=== PATIENT | female | born 1955 | race Caucasian/White ===

== ENCOUNTER 2020-05-17 06:00 | Outpatient (RCR) | payer MEDICARE, SELFPAY | END 2020-06-16 23:59 | disposition home or self-care (01) | LOC: MPT 06:00 | PROVIDERS: PCP Family Medicine; Referring Provider Neurological Surgery; Visit Provider Neurological Surgery | DX: Z98.1 Arthrodesis status (principal) | CPT/HCPCS: 97110; 97140; 97162 ==

== ENCOUNTER 2020-06-17 06:00 | Outpatient (RCR) | payer MEDICARE, SELFPAY | END 2020-07-16 23:59 | disposition home or self-care (01) | LOC: MPT 06:00 | PROVIDERS: PCP Family Medicine; Referring Provider Neurological Surgery; Visit Provider Neurological Surgery | DX: Z98.1 Arthrodesis status (principal) | CPT/HCPCS: 97110; 97140 ==

== ENCOUNTER → 2020-06-23 15:03 | Outpatient (BNVA) | payer MEDICARE, SELFPAY | PROVIDERS: PCP Family Medicine; Visit Provider Family Medicine | DX: F41.1 Generalized anxiety disorder (principal); G24.3 Spasmodic torticollis; G25.9 Extrapyramidal and movement disorder, unspecified; Z13.1 Encounter for screening for diabetes mellitus; Z13.6 Encounter for screening for cardiovascular disorders; E89.0 Postprocedural hypothyroidism; Z12.39 Encounter for other screening for malignant neoplasm of breast; Z13.820 Encounter for screening for osteoporosis; M85.80 Other specified disorders of bone density and structure, unspecified site; Z78.0 Asymptomatic menopausal state | CPT/HCPCS: 80053; 80061; 85025 ==

== ENCOUNTER → 2021-07-20 14:53 | Outpatient (BNVA) | payer MEDICARE, SELFPAY | PROVIDERS: PCP Family Medicine; Visit Provider Family Medicine | DX: Z13.6 Encounter for screening for cardiovascular disorders (principal) | CPT/HCPCS: 80061 ==

== ENCOUNTER → 2021-11-28 09:56 | Outpatient (BNVA) | payer MEDICARE, SELFPAY | PROVIDERS: PCP Family Medicine; Visit Provider Internal Medicine Cardiovascular Disease | DX: I49.9 Cardiac arrhythmia, unspecified (principal); I49.3 Ventricular premature depolarization; I49.1 Atrial premature depolarization; I47.1 Supraventricular tachycardia | CPT/HCPCS: 93225 ==

== ENCOUNTER → 2022-01-19 10:08 | Outpatient (BNVA) | payer MEDICARE, SELFPAY | PROVIDERS: PCP Family Medicine; Visit Provider Family Medicine | DX: R05.3 Chronic cough (principal); G24.3 Spasmodic torticollis | CPT/HCPCS: 71046 ==

== ENCOUNTER → 2022-03-06 09:39 | Outpatient (BNVA) | payer MEDICARE, SELFPAY | PROVIDERS: PCP Family Medicine; Visit Provider Anesthesiology Pain Medicine | DX: M47.812 Spondylosis without myelopathy or radiculopathy, cervical region (principal); M50.90 Cervical disc disorder, unspecified, unspecified cervical region; G24.3 Spasmodic torticollis; M79.601 Pain in right arm; M79.602 Pain in left arm | CPT/HCPCS: 99205 ==

== ENCOUNTER → 2022-03-28 09:07 | Outpatient (BNVA) | payer MEDICARE, SELFPAY | PROVIDERS: PCP Family Medicine; Visit Provider Anesthesiology Pain Medicine | DX: M79.18 Myalgia, other site (principal); M47.812 Spondylosis without myelopathy or radiculopathy, cervical region; M50.90 Cervical disc disorder, unspecified, unspecified cervical region; G24.3 Spasmodic torticollis | CPT/HCPCS: 20553; 99213; J1030; J3490 ==

== ENCOUNTER → 2022-05-01 09:10 | Outpatient (BNVA) | payer MEDICARE, SELFPAY | PROVIDERS: PCP Family Medicine; Visit Provider Anesthesiology Pain Medicine | DX: M51.16 Intervertebral disc disorders with radiculopathy, lumbar region (principal); M47.812 Spondylosis without myelopathy or radiculopathy, cervical region; M50.90 Cervical disc disorder, unspecified, unspecified cervical region; G24.3 Spasmodic torticollis | CPT/HCPCS: 72110; 99214 ==

== ENCOUNTER 2022-05-30 10:31 | Outpatient (CLI) | payer MEDICARE, SELFPAY ==
--- NOTE | 2022-05-30 11:00 | MR_ITS ---
WS: [id number] MRI LUMBAR SPINE NONCONTRAST TECHNIQUE: Sagittal T1, T2 and STIR imaging. Axial T1 and T2 imaging. CLINICAL INFORMATION: M54.16 - Radiculopathy, lumbar region COMPARISON: None. FINDINGS: Mild lumbar curve. No acute compression. Disc space narrowing worse at L3-L4. Anterior wedging with m ild edema L1 superior endplate with mild anterior wedging. Small amount of edema in the superior endp late L1. Endplate Schmorl's node L2. L1-L2: Mild annular bulging. Mild facet arthropathy. Spinal canal and foramen are patent. L2-L3: Mild annular bulging. Slight effacement of ventral thecal sac. Mild LEFT and no significant RI GHT foraminal narrowing. Mild facet arthropathy. L3-L4: Disc space narrowing. Small LEFT foraminal protrusion with mild to moderate LEFT and mild RIGH T foraminal narrowing. Mild facet arthropathy. Narrowing of the LEFT subarticular recess. L4-L5: Mild annular bulging. Slight effacement of ventral thecal sac. Slight narrowing of the subarti cular recess bilaterally. Small bilateral foraminal protrusions with mild LEFT foraminal narrowing. L5-S1: Spinal canal and foramen are patent. Moderate facet arthropathy. Visualized pelvic bony structures: Normal. Paravertebral soft tissues: Normal. Incidental Tarlov cysts in the sacrum. MR/MR lumbar spine wo con* [id number] IMPRESSION: 1. Mild anterior wedging L1 with mild compression superior endplate with edema consistent with acute compression. No retropulsion. 2. Small LEFT foraminal protrusion L3-L4 with mild to moderate LEFT foraminal narrowing. 3. Mild annular bulging L4-L5 with impingement traversing L5 nerve roots bilat erally. Mild LEFT foraminal narrowing at this level. 4. Moderate facet arthropathy L3-L5.
== END 2022-05-30 10:32 | disposition home or self-care (01) ==
LOC: RAD 10:37
PROVIDERS: PCP Family Medicine; Visit Provider Anesthesiology Pain Medicine
DX: M54.16 Radiculopathy, lumbar region (principal); M47.816 Spondylosis without myelopathy or radiculopathy, lumbar region; M51.26 Other intervertebral disc displacement, lumbar region; M48.56XA Collapsed vertebra, not elsewhere classified, lumbar region, initial encounter for fracture; M48.061 Spinal stenosis, lumbar region without neurogenic claudication
CPT/HCPCS: 72148

== ENCOUNTER → 2022-06-08 09:05 | Outpatient (BNVA) | payer MEDICARE, SELFPAY | PROVIDERS: PCP Family Medicine; Visit Provider Anesthesiology Pain Medicine | DX: M47.812 Spondylosis without myelopathy or radiculopathy, cervical region (principal); M50.90 Cervical disc disorder, unspecified, unspecified cervical region; M51.16 Intervertebral disc disorders with radiculopathy, lumbar region; G24.3 Spasmodic torticollis | CPT/HCPCS: 99214 ==

== ENCOUNTER → 2022-08-29 10:34 | Outpatient (BNVA) | payer MEDICARE, SELFPAY | PROVIDERS: PCP Family Medicine; Visit Provider Anesthesiology Pain Medicine | DX: M47.812 Spondylosis without myelopathy or radiculopathy, cervical region (principal); G24.3 Spasmodic torticollis; M51.16 Intervertebral disc disorders with radiculopathy, lumbar region; M50.90 Cervical disc disorder, unspecified, unspecified cervical region | CPT/HCPCS: 99214 ==

== ENCOUNTER → 2022-09-20 08:43 | Outpatient (BNVA) | payer MEDICARE, SELFPAY | PROVIDERS: PCP Family Medicine; Visit Provider Family Medicine | DX: E05.00 Thyrotoxicosis with diffuse goiter without thyrotoxic crisis or storm (principal); Z13.220 Encounter for screening for lipoid disorders; Z13.6 Encounter for screening for cardiovascular disorders; Z13.1 Encounter for screening for diabetes mellitus | CPT/HCPCS: 80053; 80061 ==

== ENCOUNTER → 2022-10-03 09:54 | Outpatient (BNVA) | payer MEDICARE, SELFPAY | PROVIDERS: PCP Family Medicine; Visit Provider Anesthesiology Pain Medicine | DX: M47.812 Spondylosis without myelopathy or radiculopathy, cervical region (principal); M50.90 Cervical disc disorder, unspecified, unspecified cervical region; M51.16 Intervertebral disc disorders with radiculopathy, lumbar region; G24.3 Spasmodic torticollis | CPT/HCPCS: 99214 ==

== ENCOUNTER → 2022-10-16 07:50 | Outpatient (BNVA) | payer MEDICARE, SELFPAY | PROVIDERS: PCP Family Medicine; Visit Provider Specialist | DX: G24.3 Spasmodic torticollis (principal); G62.9 Polyneuropathy, unspecified; G43.709 Chronic migraine without aura, not intractable, without status migrainosus; R26.89 Other abnormalities of gait and mobility | CPT/HCPCS: 99205 ==

== ENCOUNTER → 2022-11-02 07:54 | Outpatient (BNVA) | payer MEDICARE, SELFPAY | PROVIDERS: PCP Family Medicine; Visit Provider Specialist | DX: G24.3 Spasmodic torticollis (principal); G43.711 Chronic migraine without aura, intractable, with status migrainosus; G62.9 Polyneuropathy, unspecified; R26.9 Unspecified abnormalities of gait and mobility; F43.10 Post-traumatic stress disorder, unspecified | CPT/HCPCS: 64615; 64616; 99214; J0585 ==

== ENCOUNTER → 2023-02-01 07:50 | Outpatient (BNVA) | payer MEDICARE, SELFPAY | PROVIDERS: PCP Family Medicine; Visit Provider Specialist | DX: G43.711 Chronic migraine without aura, intractable, with status migrainosus (principal); G24.3 Spasmodic torticollis | CPT/HCPCS: 64615; 64616; 95911; J0585 ==

== ENCOUNTER → 2023-03-05 09:59 | Outpatient (BNVA) | payer MEDICARE, SELFPAY | PROVIDERS: PCP Family Medicine; Visit Provider Internal Medicine | DX: E89.0 Postprocedural hypothyroidism (principal); M81.0 Age-related osteoporosis without current pathological fracture; E05.00 Thyrotoxicosis with diffuse goiter without thyrotoxic crisis or storm; Z79.890 Hormone replacement therapy | CPT/HCPCS: 99204 ==

== ENCOUNTER → 2023-03-13 09:51 | Outpatient (BNVA) | payer MEDICARE, SELFPAY | PROVIDERS: PCP Family Medicine; Referring Provider Internal Medicine; Visit Provider Internal Medicine | DX: E05.00 Thyrotoxicosis with diffuse goiter without thyrotoxic crisis or storm (principal) | CPT/HCPCS: 84439; 84443 ==

== ENCOUNTER → 2023-03-20 08:49 | Outpatient (BNVA) | payer MEDICARE, SELFPAY | PROVIDERS: PCP Family Medicine; Visit Provider Anesthesiology Pain Medicine | DX: M47.812 Spondylosis without myelopathy or radiculopathy, cervical region; M50.90 Cervical disc disorder, unspecified, unspecified cervical region; G24.3 Spasmodic torticollis; M51.16 Intervertebral disc disorders with radiculopathy, lumbar region | CPT/HCPCS: 99214 ==

== ENCOUNTER → 2023-03-30 13:09 | Outpatient (BNVA) | payer MEDICARE, SELFPAY | PROVIDERS: PCP Family Medicine; Visit Provider Specialist | DX: M79.601 Pain in right arm (principal); M79.602 Pain in left arm; M79.641 Pain in right hand; M79.642 Pain in left hand; R20.0 Anesthesia of skin; R20.2 Paresthesia of skin | CPT/HCPCS: 95885; 95911 ==

== ENCOUNTER → 2023-05-10 07:30 | Outpatient (BNVA) | payer MEDICARE, SELFPAY | PROVIDERS: PCP Family Medicine; Visit Provider Specialist | DX: G43.711 Chronic migraine without aura, intractable, with status migrainosus (principal); G24.3 Spasmodic torticollis | CPT/HCPCS: 64615; 64616; J0585 ==

== ENCOUNTER 2023-05-16 14:59 | Emergency (ER) | payer MEDICARE, SELFPAY ==
[2023-05-16 15:20] VITALS: BP 139/86; PULSE 81; TEMP 36.6; O2SAT 97; BMI 22.3
[2023-05-16 16:56] VITALS: O2SAT 97
[2023-05-16 17:05] LABS: Hematocrit 38.6 % (36-47); Lymphocytes % 26.1 %; Mean Corpuscular HGB Conc 33.2 g/dL (30-55); Mean Corpuscular Hemoglobin 29.8 pg (27-33); Mean Corpuscular Volume 89.8 fl (85-98); Mean Platelet Volume 10.3 fL (7.4-10.4); Monocytes # 0.3 10^3/uL (0.2-0.9); Monocytes % 8.4 %; Neutrophils # 2.43 10^3/uL (1.8-7.7); Neutrophils % 63.5 %; Nucleated Red Blood Cells % 0 %; Platelet Count 266 10^3/cmm (157-399); Red Cell Distribution Width 13.4 % (12.1-15.1); White Blood Count 3.83 10^3/uL (3.29-11.43)
--- NOTE | 2023-05-16 17:08 | W.ED.NEUROSD ---
HPI - Neuro Symptoms/Deficit General: Chief Complaint: Neuro Symptoms/Deficit Stated Complaint: trouble eating and talking Time Seen by Provider: 05/16/23 16:34 Source: patient Mode of arrival: ambulatory Limitations: no limitations History of Present Illness: 67-year-old female with a history of cervical dystonia she received Botox. States she had a Botox injection a week ago states of last 2 days she has had some difficulty swallowing. States she is able to tolerate liquids but time she has had issues with swallowing liquids as well. Patient is in no distress here denies any vomiting or fever no focal weaknesses. Associated symptoms: Deny chest pain, headache(s), nausea or vomiting Review of Systems Const: Denies: fever(s), chills, body aches or change in appetite ENMT: Denies: throat pain or dental pain Card: Denies: chest pain Resp: Denies: dyspnea GI: Denies: abdominal pain, nausea, vomiting or diarrhea Musc: Denies: neck pain or back pain Skin/Breast: Denies: rash Neuro: Denies: headache(s) PFSH ED PFSH: Medical History Isolated cervical dystonia Seborrheic dermatitis Allergic rhinitis Carpal tunnel syndrome Dysphagia Chronic migraine Dysphonia Cranial neuropathies, multiple Hiatal hernia Diverticulosis Internal hemorrhoids Sensorineural hearing loss, asymmetrical Small fiber neuropathy Hypothyroidism, postablative Graves disease Surgical History S/P cholecystectomy H/O: hysterectomy History of surgical removal of ganglion cyst H/O tubal ligation Family History Father Stroke Diabetes Grandfather Cancer Mother Cancer Grandmother CAD (coronary artery disease) Social History Smoking and tobacco/nicotine status: never used tobacco/nicotine Second hand smoke exposure: No Alcohol intake: never Substance/Drug Use: never Current gender identity: Female Physical Exam Const: COMMON NORMALS: no acute distress, patient oriented x3 and healthy appearing HENMT: COMMON NORMALS: normocephalic and atraumatic HEAD & SCALP: normocephalic and atraumatic Neck/C-Spine: COMMON NORMALS: full ROM and supple Chest: COMMONS NORMALS: normal inspection of the chest Resp: COMMON NORMALS: normal respiratory effort Cardio: COMMON NORMALS: regular rate, regular rhythm and No murmurs present (Cardio) RATE: regular rate RHYTHM: regular rhythm Extremity: COMMON NORMALS: normal to inspection and full ROM Neuro: COMMON NORMALS: patient oriented x3, moves all extremities and no focal motor deficits Psych: COMMON NORMALS: mental status grossly normal, Normal thought process present and cooperative THOUGHT PROCESS: Normal thought process present Skin: COMMON NORMALS: no rashes or lesions noted and no wounds GENERAL SKIN EXAM: no rashes or lesions noted Course Vital Signs: Vital signs: Vital Signs Temperature 97.8 F 05/16/23 15:20 Pulse Rate 81 05/16/23 15:20 Blood Pressure 139/86 05/16/23 15:20 Pulse Oximetry 97 05/16/23 16:56 Oxygen Delivery Me thod Room Air 05/16/23 16:56 MDM - Neuro Symptoms/Deficit Medical Decision Making Patient presents with difficulty swallowing she is handling her secretions well here she is in no distress I did speak to Dr. Church who knows patient well she will set up an outpatient barium swallow and is to follow-up with her outpatient patient's return if worsening she understands agrees to plan Medical Records I reviewed the patient's medical records. Lab Data I reviewed the patient's lab results. 05/16/23 16:54 05/16/23 16:54 Laboratory Results WBC 3.83 10^3/uL (3.29-11.43) 05/16/23 16:54 RBC 4.30 10^6/uL (3.85-5.65) 05/16/23 16:54 Hgb 12.80 g/dL (11.27-16.99) 05/16/23 16:54 Hct 38.6 % (36-47) 05/16/23 16:54 MCV 89.8 fl (85-98) 05/16/23 16:54 MCH 29.8 pg (27-33) 05/16/23 16:54 MCHC 33.2 g/dL (30-55) 05/16/23 16:54 RDW 13.4 % (12.1-15.1) 05/16/23 16:54 Plt Count 266 10^3/cmm (157-399) 05/16/23 16:54 MPV 10.3 fL (7.4-10.4) 05/16/23 16:54 Neut % (Auto) 63.5 % 05/16/23 16:54 Lymph % (Auto) 26.1 % 05/16/23 16:54 Ransom % (Auto) 8.4 % 05/16/23 16:54 Eos % (Auto) 1.0 % 05/16/23 16:54 Baso % (Auto) 1.0 % 05/16/23 16:54 Neut # (Auto) 2.43 10^3/uL (1.8-7.7) 05/16/23 16:54 Lymph # (Auto) 1.0 10^3/uL (0.8-4.8) 05/16/23 16:54 Ransom # (Auto) 0.3 10^3/uL (0.2-0.9) 05/16/23 16:54 Eos # (Auto) 0.0 10^3/uL (0.0-0.8) 05/16/23 16:54 Baso # (Auto) 0.0 10^3/uL (0.0-0.1) 05/16/23 16:54 Nucleated RBC % (auto) 0 % 05/16/23 16:54 Nucleated RBCs # 0.0 /100WBC 05/16/23 16:54 Sodium 139 mmol/L (136-145) 05/16/23 16:54 Potassium 4.3 mmol/L (3.5-5.1) 05/16/23 16:54 Chloride 100 mmol/L (98-107) 05/16/23 16:54 Carbon Dioxide 28 mmol/L (22-29) 05/16/23 16:54 Anion Gap 15.3 (5-19) 05/16/23 16:54 BUN 10 mg/dL (8-23) 05/16/23 16:54 Creatinine 0.8 mg/dL (0.5-0.9) 05/16/23 16:54 GFR Calculation 71.8 mL/min (90-130) L 05/16/23 16:54 Glucose 102 mg/dL (65-115) 05/16/23 16:54 Calculated Osmolality 287 mOsm/kg (285-295) 05/16/23 16:54 Calcium 9.4 mg/dL (8.5-10.5) 05/16/23 16:54 Total Bilirubin 0.3 mg/dL (0.15-1.2) 05/16/23 16:54 AST 27 U/L (0-32) 05/16/23 16:54 ALT 14 U/L (0-33) 05/16/23 16:54 Alkaline Phosphatase 76 U/L (35-105) 05/16/23 16:54 Total Protein 7.4 g/dL (6.6-8.7) 05/16/23 16:54 Albumin 4.6 g/dL (3.5-5.2) 05/16/23 16:54 Globulin 2.8 g/dL (1.3-4.6) 05/16/23 16:54 No radiology studies performed this visit Discharge Plan Discharge Patient Disposition: Home Clinical Impression: Difficulty swallowing Condition: Stable Prescriptions: No Action fexofenadine [Carina Allergy] 180 mg tablet 180 mg PO DAILY fluticasone propionate [Allergy Relief (fluticasone)] 50 mcg/actuation spray,suspension See Rx Instructions INTRANASAL .COMPLEX Rx Instructions: 1 SPRAY intranasal 1-2 TIMES DAILY; administer into each nostril XyliMelts 550 mg muco-adhesive buccal tablet 550 mg MUCOUS MEM .hs magnesium glycinate 100 mg tablet 400 mg PO BID multivitamin with minerals Capsule 1 cap PO DAILY [place]-3 Plus Vitamin D3 [phone] [id number] capsule 1 cap PO DAILY psyllium husk [Daily Fiber] 0.52 gram capsule 0.52 gm PO DAILY epinephrine 0.3 mg/0.3 mL auto-injector 0.3 mg IM Q10M PRN (Reason: anaphylaxis) Rx Instructions: for 2 doses calcium carbonate [Calcium 600] 600 mg calcium (1,500 mg) tablet 600 mg PO BID Gentel tears as directed Patient Comments: small amount @ bedtime polyethylene glycol 3350 [Miralax] 17 gram/dose powder 17 g PO DAILY 30 Days Qty: 510 2RF Rx Instructions: mix with 8 oz water or juice docusate sodium 100 mg capsule 100 mg PO BID 30 Days Qty: 60 2RF levothyroxine 112 mcg tablet 112 mcg PO DAILY baclofen 20 mg tablet 20 mg PO DAILY topiramate 50 mg tablet 50 mg PO BID 30 Days Qty: 60 0RF clonazepam [Klonopin] 1 mg tablet 0.5 mg PO BID Qty: 90 1RF ketoconazole 2 % shampoo 1 applic TOPICAL Q14D Qty: 120 5RF gabapentin 400 mg capsule 400 mg PO TID 90 Days Qty: 270 0RF methocarbamol 500 mg tablet 500 mg PO TID Qty: 90 2RF famotidine 20 mg tablet 20 mg PO .at bedtime 90 Days Qty: 90 0RF Botox 100 unit recon soln 500 unit IM ONCE Qty: 5 0RF levothyroxine 112 mcg tablet 112 mcg PO .COMPLEX Qty: 90 0RF Rx Instructions: 112 mcg orally 1 tab sunday-Sunday and 1/2 tab on Sunday; Discharge Orders: Discharge ED (Routine); Ordered 05/16/23 Ordered By: Ly Zaman Referrals: Monica Church MD [Physician] - 1-3 days Gerri Almodovar MD [Primary Care Provider] - Discharge Diet: Advance as tolerated Discharge Activity: Resume usual activity Patient Instructions: Dysphagia (ED) Coding Level of Care Code ED Air Conditioning Installer Supervisor for Kasia Marinelli
[2023-05-16 17:26] LABS: Alanine Aminotransferase 14 U/L (0-33); Albumin Level 4.6 g/dL (3.5-5.2); Alkaline Phosphatase 76 U/L (35-105); Anion Gap 15.3 (5-19); Aspartate Amino Transferase 27 U/L (0-32); Blood Urea Nitrogen 10 mg/dL (8-23); Calcium 9.4 mg/dL (8.5-10.5); Carbon Dioxide 28 mmol/L (22-29); Chloride 100 mmol/L (98-107); Globulin 2.8 g/dL (1.3-4.6); Glomerular Filtration Rate 71.8 mL/min (90-130); Glucose 102 mg/dL (65-115); Osmolality Calculated 287 mOsm/kg (285-295); Potassium 4.3 mmol/L (3.5-5.1); Sodium 139 mmol/L (136-145); Total Bilirubin 0.3 mg/dL (0.15-1.2); Total Protein 7.4 g/dL (6.6-8.7)
[2023-05-16 17:46] VITALS: BP 130/69; PULSE 74; O2SAT 96
== END 2023-05-16 17:47 | disposition home or self-care (01) ==
PROVIDERS: Emergency Provider Emergency Medicine; PCP Family Medicine
DX: R13.10 Dysphagia, unspecified (principal)
CPT/HCPCS: 36415; 80053; 85025; 99283

== ENCOUNTER 2023-05-22 13:00 | Outpatient (CLI) | payer MEDICARE, SELFPAY ==
--- NOTE | 2023-05-22 13:30 | XR_ITS ---
WS: [email or web address] SCREENING DEXA SCAN [employer] CLINICAL INFORMATION: osteoporosis COMPARISON: None. FINDINGS: The L1-L4 bone mineral density measures 1.142 g/cm2. This corresponds to a T score score of -0.3 and Z score of 1.4. Left femoral neck bone mineral density measures 0.739 g/cm2. This corresponds to a T score of -2.1 an d Z score of -0.8. Right femoral neck bone mineral density measures 0.774 g/cm2. This corresponds to a T score -1.9of an d Z score of -0.5. Mean femoral neck bone mineral density measures 0.756 g/cm2. This corresponds to a T score of -2.0 an d Z score of -0.6. IMPRESSION: Normal bone mineralization lumbar spine. Osteopenia femoral necks. Patient's FRAX calculated 10 year probability for major osteoporotic fracture is 23.0% and osteoporot ic hip fracture is 4.2%.
== END 2023-05-22 13:01 | disposition home or self-care (01) ==
LOC: RAD 13:01
PROVIDERS: PCP Family Medicine; Visit Provider Internal Medicine
DX: M81.0 Age-related osteoporosis without current pathological fracture (principal); M47.812 Spondylosis without myelopathy or radiculopathy, cervical region; M50.90 Cervical disc disorder, unspecified, unspecified cervical region; M51.16 Intervertebral disc disorders with radiculopathy, lumbar region; R26.9 Unspecified abnormalities of gait and mobility; G24.3 Spasmodic torticollis; M85.88 Other specified disorders of bone density and structure, other site
CPT/HCPCS: 77080; 99214

== ENCOUNTER 2023-06-18 09:29 | Outpatient (CLI) | payer MEDICARE, SELFPAY ==
--- NOTE | 2023-06-18 10:00 | FL_ITS ---
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 FLUOROSCOPY TIME: 2min [id number] # OF SPOT FILMS: 10 video runs FINDINGS: There is good oral motor control There was pooling within the vallecula. At the end of the study there was some penetration without aspiration of thin liquid consistencies. The more solid material and barium tablet passed freely IMPRESSION: Mild penetration with thin liquids There is limited pooling within the vallecula.
== END 2023-06-18 09:30 | disposition home or self-care (01) ==
LOC: RAD 09:30
PROVIDERS: Visit Provider Specialist
DX: G24.3 Spasmodic torticollis (principal); R13.10 Dysphagia, unspecified
CPT/HCPCS: 74230; 92611

== ENCOUNTER 2023-06-28 08:18 | Outpatient (CLI) | payer MEDICARE, SELFPAY ==
--- NOTE | 2023-06-28 08:45 | MR_ITS ---
WS: [id number] MRI CERVICAL SPINE NONCONTRAST TECHNIQUE: Sagittal T1, T2 and STIR imaging. Axial T2, gradient, and fiesta imaging. CLINICAL INFORMATION: R26.9 - Unspecified abnormalities of gait and mobility COMPARISON: None. FINDINGS: Normal cervical alignment. Prior postoperative changes ACDF C5-C7. Disc bulging worse at C7-T1 and T1 -2. C2-C3: Normal. C3-C4: Mild facet arthropathy. Mild LEFT bony foraminal narrowing. C4-C5: Moderate LEFT facet arthropathy. Mild LEFT and no significant RIGHT foraminal narrowing. Spine canal is patent. C5-C6: Postoperative changes ACDF. Mild facet arthropathy. Mild bilateral bony foraminal narrowing. S ruthie canal is patent. C6-C7: Postoperative changes ACDF. Mild LEFT bony foraminal narrowing. Mild facet arthropathy. C7-T1: Mild disc bulging with endplate osteophytic ridging. Mild LEFT bony foraminal narrowing. Spina l canal is patent. T1-T2. Tiny central protrusion. Spinal canal and foramen are patent. Tiny central protrusion at T3-T4 Visualized brain stem structures: Normal. Prevertebral soft tissues: Normal. IMPRESSION: 1. Normal cervical alignment. Prior postoperative changes ACDF C5-C7. 2. Disc bulging worse at C7-T1 with a small central protrusion. Mild LEFT bony foraminal narrowing a t this level. 3. Shallow central protrusions at T1-2 and T3-4. 4. Otherwise mild bony foraminal narrowing described above.
[2023-06-28 09:21] LABS: Alanine Aminotransferase 10 U/L (0-33); Albumin Level 4.6 g/dL (3.5-5.2); Alkaline Phosphatase 78 U/L (35-105); Anion Gap 15.7 (5-19); Aspartate Amino Transferase 18 U/L (0-32); Blood Urea Nitrogen 13 mg/dL (8-23); Calcium 9.4 mg/dL (8.5-10.5); Carbon Dioxide 29 mmol/L (22-29); Chloride 102 mmol/L (98-107); Free T4 Free Thyroxine 1.46 ng/dL (0.82-1.77); Globulin 2.9 g/dL (1.3-4.6); Glomerular Filtration Rate 62.5 mL/min (90-130); Glucose 81 mg/dL (65-115); Osmolality Calculated 293 mOsm/kg (285-295); Potassium 4.7 mmol/L (3.5-5.1); Sodium 142 mmol/L (136-145); Thyroid Stimulating Hormone 3.76 uIU/mL (0.27-4.20); Total Bilirubin 0.2 mg/dL (0.15-1.2); Total Protein 7.5 g/dL (6.6-8.7)
[2023-06-28 09:24] LABS: Calcium 9.7 mg/dL (8.5-10.5)
--- NOTE | 2023-06-28 09:30 | MR_ITS ---
WS: [email or web address] MRI HEAD WITHOUT CONTRAST TECHNIQUE: Sagittal T1, T2 axial, T2 axial FLAIR, axial and coronal T1 images, axial susceptibility w eighted imaging, axial diffusion weighted images, and coronal T2 images were obtained. CLINICAL INFORMATION: R26.9 - Unspecified abnormalities of gait and mobility COMPARISON: None. FINDINGS: No evidence of restricted diffusion to suggest acute ischemia. Ventricular system and basal cisterns are patent. Minimal small vessel changes. No significant parenchymal volume loss. Normal posterior fo ssa. Normal vascular flow voids at the skull base. No extra-axial fluid collections. No evidence of m ass or mass effect. Paranasal sinuses and mastoid air cells are well aerated. No hemosiderin on the susceptibility weigh ashly images. Normal optic chiasm and pituitary infundibulum. Temporal lobes and hippocampal formations are normal in appearance. Small amount of artifact in the brainstem. This has a normal appearance on the MRI cervical spine. IMPRESSION: 1. No evidence of restricted diffusion to suggest acute ischemia. 2. Minimal small vessel changes. No significant parenchymal volume loss. 3. No hemosiderin on susceptibility-weighted images. 4. Temporal lobes and hippocampal formations are normal in appearance. 5. No other suspicious findings.
[2023-06-28 10:05] LABS: Parathyroid Hormone 35.9 pg/mL (15-65)
[2023-06-28 10:06] LABS: 25 Hydroxy Vitamin D 40 ng/mL (30-100)
== END 2023-06-28 08:19 | disposition home or self-care (01) ==
LOC: RAD 08:20
PROVIDERS: Internal Medicine; PCP Family Medicine; Visit Provider Anesthesiology Pain Medicine
DX: M50.33 Other cervical disc degeneration, cervicothoracic region (principal); R26.9 Unspecified abnormalities of gait and mobility; M81.0 Age-related osteoporosis without current pathological fracture; E89.0 Postprocedural hypothyroidism; E05.00 Thyrotoxicosis with diffuse goiter without thyrotoxic crisis or storm; Z98.1 Arthrodesis status
CPT/HCPCS: 70551; 72141; 80053; 82306; 82310; 83970; 84439; 84443

== ENCOUNTER → 2023-07-05 09:43 | Outpatient (BNVA) | payer MEDICARE, SELFPAY | PROVIDERS: PCP Family Medicine; Visit Provider Anesthesiology Pain Medicine | DX: M54.81 Occipital neuralgia (principal); E89.0 Postprocedural hypothyroidism; E05.00 Thyrotoxicosis with diffuse goiter without thyrotoxic crisis or storm; M81.0 Age-related osteoporosis without current pathological fracture; R13.10 Dysphagia, unspecified; Z79.890 Hormone replacement therapy; G25.9 Extrapyramidal and movement disorder, unspecified; M47.812 Spondylosis without myelopathy or radiculopathy, cervical region; M50.90 Cervical disc disorder, unspecified, unspecified cervical region; G24.3 Spasmodic torticollis; M51.16 Intervertebral disc disorders with radiculopathy, lumbar region | CPT/HCPCS: 64405; 99214; 99215; J1010; J3490 ==

== ENCOUNTER 2023-08-09 12:41 | Oncology outpatient (recurring) (ONCR) | payer MEDICARE, SELFPAY ==
[2023-08-09 13:30] VITALS: BP 129/70; PULSE 85; RESP 16; TEMP 36.8; O2SAT 97
[2023-08-09] MEDS: zoledronic acid 5 MG in empty flexible container 1 EACH 400 MG IV (16:30)
[2023-08-09 16:52] VITALS: BP 149/84; PULSE 84; RESP 16; TEMP 36.7; O2SAT 99
== END 2023-08-17 23:59 | disposition home or self-care (01) ==
LOC: ONCMED 12:42
PROVIDERS: PCP Family Medicine; Visit Provider Internal Medicine
DX: M81.0 Age-related osteoporosis without current pathological fracture (principal)
CPT/HCPCS: 64616; 96374; J0585; J3489

== ENCOUNTER → 2023-08-16 12:45 | Outpatient (BNVA) | payer MEDICARE, SELFPAY | PROVIDERS: PCP Family Medicine; Visit Provider Specialist | DX: G24.3 Spasmodic torticollis (principal); G43.709 Chronic migraine without aura, not intractable, without status migrainosus; G43.711 Chronic migraine without aura, intractable, with status migrainosus; M54.81 Occipital neuralgia | CPT/HCPCS: 64615; J0585 ==

== ENCOUNTER → 2023-08-30 11:00 | Outpatient (BNVA) | payer MEDICARE, SELFPAY | PROVIDERS: PCP Family Medicine; Visit Provider Anesthesiology Pain Medicine | DX: M47.812 Spondylosis without myelopathy or radiculopathy, cervical region; M50.90 Cervical disc disorder, unspecified, unspecified cervical region; G24.3 Spasmodic torticollis; M51.16 Intervertebral disc disorders with radiculopathy, lumbar region; M47.816 Spondylosis without myelopathy or radiculopathy, lumbar region; M51.26 Other intervertebral disc displacement, lumbar region; G50.0 Trigeminal neuralgia; G43.711 Chronic migraine without aura, intractable, with status migrainosus | CPT/HCPCS: 99214 ==

== ENCOUNTER → 2023-09-25 10:27 | Outpatient (BNVA) | payer MEDICARE, SELFPAY | PROVIDERS: PCP Family Medicine; Visit Provider Family Medicine | DX: Z13.6 Encounter for screening for cardiovascular disorders (principal); Z13.220 Encounter for screening for lipoid disorders; E05.00 Thyrotoxicosis with diffuse goiter without thyrotoxic crisis or storm; R13.10 Dysphagia, unspecified; E89.0 Postprocedural hypothyroidism; M81.0 Age-related osteoporosis without current pathological fracture | CPT/HCPCS: 80061; 82306; 84439; 84443 ==

== ENCOUNTER → 2023-10-01 09:58 | Outpatient (BNVA) | payer MEDICARE, SELFPAY | PROVIDERS: PCP Family Medicine; Visit Provider Internal Medicine | DX: M81.0 Age-related osteoporosis without current pathological fracture (principal); E89.0 Postprocedural hypothyroidism; E05.00 Thyrotoxicosis with diffuse goiter without thyrotoxic crisis or storm; E11.9 Type 2 diabetes mellitus without complications; Z79.890 Hormone replacement therapy | CPT/HCPCS: 99214 ==

== ENCOUNTER → 2023-11-07 10:47 | Outpatient (BNVA) | payer MEDICARE, SELFPAY | PROVIDERS: PCP Family Medicine; Referring Provider Family Medicine; Visit Provider Nurse Practitioner Family | DX: D48.5 Neoplasm of uncertain behavior of skin (principal); L82.1 Other seborrheic keratosis; D22.5 Melanocytic nevi of trunk | CPT/HCPCS: 11102; 99203 ==

== ENCOUNTER → 2024-02-26 14:42 | Outpatient (BNVA) | payer MEDICARE, SELFPAY | PROVIDERS: PCP Family Medicine; Visit Provider Family Medicine | DX: K21.9 Gastro-esophageal reflux disease without esophagitis; Z79.899 Other long term (current) drug therapy | CPT/HCPCS: 80053; 80061; 82043; 82306; 83036 ==

== ENCOUNTER → 2024-03-25 08:47 | Outpatient (BNVA) | payer MEDICARE, SELFPAY | PROVIDERS: Visit Provider Internal Medicine | DX: E89.0 Postprocedural hypothyroidism (principal); M81.0 Age-related osteoporosis without current pathological fracture; E05.00 Thyrotoxicosis with diffuse goiter without thyrotoxic crisis or storm; R03.0 Elevated blood-pressure reading, without diagnosis of hypertension; R07.9 Chest pain, unspecified; I45.10 Unspecified right bundle-branch block; I49.3 Ventricular premature depolarization; G24.3 Spasmodic torticollis; M50.90 Cervical disc disorder, unspecified, unspecified cervical region | CPT/HCPCS: 93005; 99214; 99215 ==

== ENCOUNTER 2024-04-18 08:56 | Outpatient (CLI) | payer MEDICARE, SELFPAY ==
--- NOTE | 2024-04-18 09:15 | USCV_ITS ---
Mahi Salmeron Age: 68 Gender: F : 1955 Exam Date: 04/18/2024 09:12 Ordering Phys: Cierra Clement MD ([email or web address]) Technologist: CT Exam Location: [facility] Indication: sob BP: 130 / 75 HR: 67 Rhythm: Sinus Technical Quality: Adequate MEASUREMENTS (Male / Female) Normal Values 2D ECHO LVOT Diameter 2.0 cm LV Ejection Fraction MOD 4C 73.0 % LV Ejection Fraction MOD 2C 64.3 % LV Ejection Fraction 2C AL 66.0 % LA Diameter 3.6 cm RA Systolic Volume 4C AL 39.1 ml RA Systolic Volume 4C MOD 37.5 ml LA Sys Volume AL 31.7 cm cubed LA Sys Volume Index AL 19.3 cm cubed/m squared IVC Diameter 1.9 cm M-MODE LA Ao Ratio MM 1.5 AV Cusp Separation MM 1.8 cm DOPPLER AV Peak Velocity 122.0 cm/s LVOT Peak Velocity 80.0 cm/s AV Area Cont Eq vti 2.6 cm squared AV Area Cont Eq pk 2.1 cm squared MV Peak Velocity 107.0 cm/s MV Area PHT 6.7 cm squared Mitral E to A Ratio 0.9 TR Peak Velocity 249.0 cm/s TR Peak Gradient 24.8 mmHg TR Mean Velocity 188.0 cm/s TR Mean Gradient 15.4 mmHg TR Velocity Time Integral 73.1 cm TV Peak E Velocity 83.0 cm/s PV Peak Velocity 100.0 cm/s FINDINGS Left Ventricle Left ventricle is normal in size. LV systolic function is normal with EF of 60-65%. No regional wall motion abnormalities are seen. Grade 1 diastolic dysfunction Right Ventricle Normal in size and function Right Atrium Normal in size Left Atrium Normal in size Mitral Valve Structurally normal mitral valve. Mild mitral regurgitation. Aortic Valve Structurally normal aortic valve. No significant stenosis or regurgitation. Tricuspid Valve Mild tricuspid regurgitation. Pulmonary artery systolic function is normal. Pulmonic Valve Not well visualized Pericardium Normal Aorta Normal in size IVC Appears to be normal CONCLUSIONS LV systolic function is normal with EF of 60-65% Grade 1 diastolic dysfunction Mild mitral regurgitation Mild tricuspid regurgitation No comparison studies are available. Jeff Joseph MD (Electronically Signed) Final Date: 19 April 2024 10:46 S
== END 2024-04-18 08:57 | disposition home or self-care (01) ==
PROVIDERS: PCP Family Medicine; Visit Provider Internal Medicine Cardiovascular Disease
DX: R06.09 Other forms of dyspnea (principal); R93.1 Abnormal findings on diagnostic imaging of heart and coronary circulation; I34.0 Nonrheumatic mitral (valve) insufficiency; I07.1 Rheumatic tricuspid insufficiency
CPT/HCPCS: 93306

== ENCOUNTER → 2024-04-21 10:36 | Outpatient (BNVA) | payer MEDICARE, SELFPAY | PROVIDERS: PCP Family Medicine; Visit Provider Anesthesiology Pain Medicine | DX: M47.812 Spondylosis without myelopathy or radiculopathy, cervical region (principal); M50.90 Cervical disc disorder, unspecified, unspecified cervical region; M51.16 Intervertebral disc disorders with radiculopathy, lumbar region; G24.3 Spasmodic torticollis | CPT/HCPCS: 99214 ==

== ENCOUNTER → 2024-06-24 09:18 | Outpatient (BNVA) | payer MEDICARE, SELFPAY | PROVIDERS: PCP Family Medicine; Visit Provider Nurse Practitioner Family | DX: I45.10 Unspecified right bundle-branch block (principal); I49.1 Atrial premature depolarization; I49.3 Ventricular premature depolarization; I07.1 Rheumatic tricuspid insufficiency; E03.9 Hypothyroidism, unspecified; I73.00 Raynaud's syndrome without gangrene | CPT/HCPCS: 99213 ==

== ENCOUNTER 2024-08-12 10:26 | Oncology outpatient (recurring) (ONCR) | payer MEDICARE, SELFPAY ==
--- NOTE | 2024-08-12 09:34 | XR_ITS ---
WS: [id number] Thoracic spine, 3 views, 08/12/2024 Clinical Data: M54.6 - Pain in thoracic spine Comparison: None. Findings: No compression fractures are seen. The disc heights are normal. Minimal osteoarthritic spurring is seen. The paravertebral regions are normal. There is an anterior cervical disc fusion. 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
--- NOTE | 2024-08-12 09:34 | XR_ITS ---
WS: [id number] LUMBAR SPINE: 2 VIEWS TECHNIQUE: AP and lateral. HISTORY: M54.50 - Low back pain, unspecified COMPARISON: 05/01/2022 Mild increase in lumbar lordosis. Mild anterior wedging of L1 by 10% is stable. Advanced degenerative disc space narrowing and calcified disc at L3-4. Facet joint arthropathy at all levels. Pedicles are well identified. Moderate SI joint arthritis. No bone destruction identified. Some of the bone is being obscured by fecal material. Prior cholecystectomy. XR/XR lumbar spine 2-3V* [id number] IMPRESSION: 1. Rotary scoliosis. 2. Advanced degenerative disc disease at L3-4. 3. Stable chronic 10% L1 compression fracture. 4. Prior cholecystectomy.
[2024-08-12] MEDS: zoledronic acid 5 MG in empty flexible container 1 EACH 400 MG IV (11:43)
[2024-08-12 12:06] VITALS: BP 137/82; PULSE 72; RESP 17; TEMP 36.1; O2SAT 99
== END 2024-08-16 23:59 | disposition home or self-care (01) ==
PROVIDERS: PCP Family Medicine; Visit Provider Internal Medicine
DX: Z53.9 Procedure and treatment not carried out, unspecified reason (principal); M81.0 Age-related osteoporosis without current pathological fracture; Z79.899 Other long term (current) drug therapy; M47.894 Other spondylosis, thoracic region; M41.86 Other forms of scoliosis, lumbar region; M51.369 Other intervertebral disc degeneration, lumbar region without mention of lumbar back pain or lower extremity pain; M48.56XA Collapsed vertebra, not elsewhere classified, lumbar region, initial encounter for fracture; Z90.49 Acquired absence of other specified parts of digestive tract; R93.7 Abnormal findings on diagnostic imaging of other parts of musculoskeletal system; M47.896 Other spondylosis, lumbar region; M46.1 Sacroiliitis, not elsewhere classified; Z98.890 Other specified postprocedural states
CPT/HCPCS: 72072; 72100; 96365; J3489

== ENCOUNTER 2024-08-17 05:00 | Outpatient (RCR) | payer MEDICARE, SELFPAY | END 2024-09-15 23:59 | disposition home or self-care (01) | LOC: MPT 05:00 | PROVIDERS: Visit Provider Psychiatry & Neurology Neurology | DX: G24.3 Spasmodic torticollis (principal) | CPT/HCPCS: 97162 ==

== ENCOUNTER → 2024-09-03 09:51 | Outpatient (BNVA) | payer MEDICARE, SELFPAY | PROVIDERS: PCP Family Medicine; Visit Provider Family Medicine | DX: M81.0 Age-related osteoporosis without current pathological fracture (principal); E89.0 Postprocedural hypothyroidism; E05.00 Thyrotoxicosis with diffuse goiter without thyrotoxic crisis or storm; M25.50 Pain in unspecified joint; R53.83 Other fatigue; R13.12 Dysphagia, oropharyngeal phase | CPT/HCPCS: 80053; 82306; 82607; 84439; 84443; 84481; 85651; 86038; 86140 ==

== ENCOUNTER → 2024-09-09 09:17 | Outpatient (BNVA) | payer MEDICARE, SELFPAY | PROVIDERS: Visit Provider Family Medicine | DX: R73.9 Hyperglycemia, unspecified (principal); R76.8 Other specified abnormal immunological findings in serum | CPT/HCPCS: 83036; 86431 ==

== ENCOUNTER → 2024-09-18 09:07 | Outpatient (BNVA) | payer MEDICARE, SELFPAY | PROVIDERS: Visit Provider Internal Medicine | DX: E89.0 Postprocedural hypothyroidism (principal); M81.0 Age-related osteoporosis without current pathological fracture; E05.00 Thyrotoxicosis with diffuse goiter without thyrotoxic crisis or storm | CPT/HCPCS: 99214 ==

== ENCOUNTER → 2024-11-06 13:24 | Outpatient (BNVA) | payer MEDICARE, SELFPAY | PROVIDERS: PCP Family Medicine; Referring Provider Family Medicine; Visit Provider Internal Medicine Rheumatology | DX: R76.8 Other specified abnormal immunological findings in serum (principal); I73.00 Raynaud's syndrome without gangrene; M81.0 Age-related osteoporosis without current pathological fracture; M51.16 Intervertebral disc disorders with radiculopathy, lumbar region; M25.50 Pain in unspecified joint | CPT/HCPCS: 36415; 80053; 82306; 83520; 84439; 84443; 86200; 86225; 86235; 86431; 99204 ==

== ENCOUNTER → 2024-11-10 09:50 | Outpatient (BNVA) | payer MEDICARE, SELFPAY | PROVIDERS: PCP Family Medicine; Visit Provider Nurse Practitioner Family | DX: D18.01 Hemangioma of skin and subcutaneous tissue (principal); L73.8 Other specified follicular disorders; L57.8 Other skin changes due to chronic exposure to nonionizing radiation; L81.4 Other melanin hyperpigmentation; X32.XXXA Exposure to sunlight, initial encounter; L82.0 Inflamed seborrheic keratosis; L29.89 Other pruritus; R20.9 Unspecified disturbances of skin sensation; R20.8 Other disturbances of skin sensation; D48.5 Neoplasm of uncertain behavior of skin | CPT/HCPCS: 11102; 17110; 99213 ==

== ENCOUNTER → 2024-11-20 08:50 | Outpatient (BNVA) | payer MEDICARE, SELFPAY | PROVIDERS: PCP Family Medicine; Visit Provider Internal Medicine | DX: M81.0 Age-related osteoporosis without current pathological fracture (principal); E89.0 Postprocedural hypothyroidism; E05.00 Thyrotoxicosis with diffuse goiter without thyrotoxic crisis or storm; R03.0 Elevated blood-pressure reading, without diagnosis of hypertension; R13.12 Dysphagia, oropharyngeal phase | CPT/HCPCS: 99214 ==

== ENCOUNTER → 2025-01-14 09:49 | Outpatient (BNVA) | payer MEDICARE, SELFPAY | PROVIDERS: PCP Family Medicine; Referring Provider Internal Medicine Rheumatology; Visit Provider Internal Medicine Rheumatology | DX: I73.00 Raynaud's syndrome without gangrene (principal); R76.89 Other specified abnormal immunological findings in serum; R13.12 Dysphagia, oropharyngeal phase | CPT/HCPCS: 80076; 82565; 84439; 84443; 85025; 85651; 86140 ==

== ENCOUNTER → 2025-01-15 09:10 | Outpatient (BNVA) | payer MEDICARE, SELFPAY | PROVIDERS: PCP Family Medicine; Referring Provider Nurse Practitioner; Visit Provider Nurse Practitioner | DX: I73.00 Raynaud's syndrome without gangrene (principal); R76.89 Other specified abnormal immunological findings in serum | CPT/HCPCS: 86480 ==

== ENCOUNTER → 2025-02-24 14:56 | Outpatient (BNVA) | payer MEDICARE, SELFPAY | PROVIDERS: PCP Family Medicine; Visit Provider Family Medicine | DX: Z79.899 Other long term (current) drug therapy (principal); D72.819 Decreased white blood cell count, unspecified | CPT/HCPCS: 80076; 82565; 85025; 85651; 86140 ==